=== PATIENT | male | born 1985 | race Hispanic/Latino ===

== ENCOUNTER → 2020-01-16 | Day surgery (SDC) | payer BC ==
[~2020-01-16] MED LIST: ACETAMINOPHEN 1000 MG/100 ML 100 ML IV ONE; ANTIBIOTIC PO; ANTIBIOTIC28.4 GM PO; BUPIVACAINE 0.25% 30ML SDV INJ ONE; DEXAMETHASONE SOD PHOS INJ 4 MG/ML VIAL ONE; FENTANYL CITRATE/PF 100MCG/2 ML INJ ONE; GLYCOPYRROLATE INJ 0.2 MG/ML VIAL ONE; KETOROLAC TROMETHAMINE 30 MG/ML VIAL ONE; LIDOCAINE HCL 2% LOCAL INJ 5 ML SDV VIAL INJ ONE; MIDAZOLAM HCL 2 MG/2 ML VIAL ONE; NEOSTIGMINE 1 MG/ML 10ML VIAL ONE; ONDANSETRON HCL INJ 2MG/ML 2ML 2 MG/ML VIAL ONE; PROPOFOL IV EMULSION 10 MG/ML 20 ML VIAL ONE; ROCURONIUM BROMIDE 10 MG/ML 5ML VIAL ONE; SEVOFLURANE INHAL SOLN 250 ML PEN BTL ONE
[2020-01-16 07:24] LABS: BASOPHILS # (AUTO) 0.1 (0.0-0.1); BASOPHILS % 0.7 % (0.0-1.0); EOSINOPHILS # (AUTO) 0.2 (0.0-0.4); EOSINOPHILS % 2.3 % (0.0-6.0); HEMATOCRIT 49.1 % (38.2-49.6); HEMOGLOBIN 16.7 g/dL (14.0-18.0); LYMPHOCYTES % 40.3 % (18.0-39.1); MEAN CORPUSCULAR HEMOGLOBIN 27.9 pg (28-32); MEAN CORPUSCULAR VOLUME 82.1 fL (81-99); MONOCYTES # (AUTO) 0.7 (0.2-0.8); NEUTROPHILS # (AUTO) 3.5 (2.1-6.9); NEUTROPHILS % 47.4 % (38.7-80.0); PLATELET COUNT 239 x10e3/uL (140-360); RED BLOOD COUNT 5.98 x10e6/uL (4.3-5.7); RED CELL DISTRIBUTION WIDTH 14.4 % (11.7-14.4)
[2020-01-16 07:47] LABS: ALANINE AMINOTRANSFERASE 82 IU/L (0-55); ALBUMIN 4.1 g/dL (3.5-5.0); ALKALINE PHOSPHATASE 74 IU/L (40-150); ANION GAP 13.1 mmol/L (8-16); BLOOD UREA NITROGEN 9 mg/dL (7-26); BUN/CREATININE RATIO 10 (6-25); CARBON DIOXIDE 24 mmol/L (22-29); CHLORIDE 105 mmol/L (98-107); CREATININE, SERUM 0.91 mg/dL (0.72-1.25); EST GLOMERULAR FILTRATION RATE > 60 ML/MIN (60-); GLUCOSE 97 mg/dL (74-118); POTASSIUM 4.1 mmol/L (3.5-5.1); SODIUM 138 mmol/L (136-145)
[2020-01-16 12:46] VITALS: BP 119/64
--- NOTE | 2020-01-16 13:13 | Operative Report ---
DATE OF PROCEDURE: 01/16/2020 SURGEON: Jah Argueta MD PREOPERATIVE DIAGNOSIS: Complex pilonidal cyst with multiple sinuses. POSTOPERATIVE DIAGNOSIS: Complex pilonidal cyst with multiple sinuses. OPERATION PERFORMED: Wide resection of complex pilonidal cyst with rotational gluteal flap closure. ANESTHESIA: General endotracheal. COMPLICATIONS: None. ESTIMATED BLOOD LOSS: 100 mL. DESCRIPTION OF PROCEDURE: With the patient lying in bed in the prone position under good general endotracheal anesthesia, the lower back and perineal area were prepped with Betadine solution and draped in the usual manner. 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 An elliptical incision was then made curved to the left side to make sure that we included the left buttock's fistula and incision was deepened through the subcutaneous tissue all the way down to the gluteal fascia and the pilonidal cyst was totally and completely removed off the fascia and sent for pathological examination. Hemostasis was ascertained. The gluteal fascia was then elevated, mobilized on both sides in order to be able to reapproximate the defect. Once this was done and we had a good release on both sides, the fascia was then reapproximated with interrupted sutures of 2-0 Vicryl fixing it to the midline. The subcutaneous tissue was similarly approximated with 2-0 and 3-0 Vicryl and the skin was closed with interrupted vertical mattress sutures of 2-0 and 3-0 silk. All layers were infiltrated on the way out with solution of 0.25% Marcaine and a dressing was applied. The sponge, lap, and needle count was correct. The patient tolerated the procedure well and returned to the recovery room in stable condition. Jah Argueta MD JLR/MODL /[id number]
== END | disposition home or self-care (01) ==
LOC: OR 06:40
PROVIDERS: ATTEND Surgery
DX: L05.91 Pilonidal cyst without abscess (principal); Z01.812 Encounter for preprocedural laboratory examination; R42 Dizziness and giddiness; F41.9 Anxiety disorder, unspecified
CPT/HCPCS: 11772; 36415; 80053; 85025; 88304; J0131; J1100; J1885; J2001; J2250; J2405; J2704; J2710; J3010